=== PATIENT | female | born 1995 | race American Indian/Alaskan Native ===

== ENCOUNTER 2017-01-01 04:42 | Emergency (ER) | payer MEDICAID, OTHER ==
[2017-01-01 05:53] LABS: Anion Gap 20 mmol/L; BUN/Creatinine Ratio 16.66; Blood Urea Nitrogen 10 mg/dL (7-17); Calcium 9.3 mg/dL (8.4-10.2); Carbon Dioxide 23 mmol/L (22-30); Chloride 96.2 mmol/L (98-107); Glucose 332 mg/dL (65-100); Potassium 3.9 mmol/L (3.6-5.0); Sodium 135 mmol/L (137-145)
[2017-01-01 06:07] LABS: Hematocrit 43.3 % (30.3-42.9); Hemoglobin 14.4 gm/dl (10.1-14.3); Mean Corpuscular HGB Conc 33 % (30-34); Mean Corpuscular Hemoglobin 29 pg (28-32); Mean Corpuscular Volume 86 fl (79-97); Platelet Count 404 K/mm3 (140-440); Red Blood Count 5.01 M/mm3 (3.65-5.03); Red Cell Distribution Width 12.4 % (13.2-15.2); White Blood Count 18.6 K/mm3 (4.5-11.0)
[2017-01-01 06:50] LABS: Basophils % (Manual) 0 % (0.0-1.8); Blastocytes % (Manual) 0 %; Eosinophils % (Manual) 0 % (0.0-4.3)
[2017-01-01 06:51] LABS: Diff Status Complete; Platelet Estimate Consistent w Auto
[2017-01-01] MEDS ORDERED: NACL 0.9% 1000 ML 1,000 ML IV ONE ×2 (07:45→11:18)
[2017-01-01] MEDS ORDERED: NORCO 5/325 PO ONE (09:07)
[2017-01-01] MEDS ORDERED: NACL 0.9% 1000 ML 1,000 ML ONE (11:10)
[2017-01-01 11:23] LABS: Hematocrit 39.7 % (30.3-42.9); Hemoglobin 13.2 gm/dl (10.1-14.3); Mean Corpuscular HGB Conc 33 % (30-34); Mean Corpuscular Hemoglobin 29 pg (28-32); Mean Corpuscular Volume 87 fl (79-97); Platelet Count 398 K/mm3 (140-440); Red Blood Count 4.58 M/mm3 (3.65-5.03); Red Cell Distribution Width 12.5 % (13.2-15.2)
[2017-01-01 11:55] LABS: Basophils % (Manual) 0 % (0.0-1.8); Blastocytes % (Manual) 0 %
[2017-01-01 11:56] LABS: Diff Status Complete; RBC Morphology Normal
--- NOTE | 2017-01-01 11:58 | XRay Report ---
Single view chest: History: Chest pain. Findings: Normal cardiomediastinal silhouette. Trachea is midline. No consolidation, pneumothorax or pleural effusion. Impression: No acute cardiopulmonary findings.
--- NOTE | 2017-01-01 12:52 | Cat Scan Report ---
CTA chest: History: Chest pain. Findings: No evidence of aortic aneurysm or pulmonary embolism. No pleural or pericardial effusion. No mediastinal mass. Normal lung parenchyma. No discrete nodularity or consolidation. Impression: No evidence of pulmonary embolism. No acute lung changes.
[2017-01-01 14:32] VITALS: BP 125/83
--- NOTE | 2017-01-01 15:43 | Emergency Department Report ---
HPI - General Chief Complaint: Chest Pain Time Seen by Provider: 01/01/17 07:42 - HPI HPI: The patient is a 21-year-old female with a history of diabetes type 1 since childhood, who presents for evaluation of chest pain. The patient reports chest pain for the past 5 days, on and off, 6/10 in severity currently, aching in quality, and is exacerbated with deep breaths. The patient denies trauma to the chest, fever, cough, syncope, forceful vomiting, hemoptysis, unilateral leg swelling, oral contraceptive use, recent immobilization, history of DVT or PE, recent cancer or chemotherapy. ED Past Medical Hx - Past Medical History Previous Medical History?: Yes Hx Hypertension: Yes Hx Diabetes: Yes - Surgical History Past Surgical History?: No - Social History Smoking Status: Never Smoker Substance Use Type: Prescribed - Medications Home Medications: Home Medications Medication Instructions Recorded Confirmed Last Taken Type Famotidine [Pepcid] 20 mg PO DAILY #30 tablet 12/09/14 Unknown Rx Lantus 20 units SQ DAILY 12/09/14 12/09/14 Unknown History Lantus 30 units SQ HS 12/09/14 12/09/14 Unknown History Lisinopril 10 mg PO DAILY 12/09/14 12/09/14 Unknown History Ondansetron [Zofran Odt] 8 mg PO TID PRN #20 tab.rapdis 12/09/14 Unknown Rx Tramadol HCl [traMADol] 50 mg PO Q8H PRN #20 tablet 12/09/14 Unknown Rx metFORMIN 1,000 mg PO BID 12/09/14 12/09/14 Unknown History Famotidine [Pepcid] 20 mg PO BID #30 tablet 01/01/17 Unknown Rx HYDROcodone/APAP 7.5-325 [[place] 1 each PO Q8HR PRN #10 tablet 01/01/17 Unknown Rx 7.5-325 mg TAB] ED Review of Systems ROS: Stated complaint: CHEST PAIN/ABD PAIN Other details as noted in HPI Constitutional: denies: fever ENT: denies: throat or neck pain Respiratory: denies: cough, shortness of breath Cardiovascular: reports chest pain Endocrine: denies unexplained weight loss or gain Gastrointestinal: denies: abdominal pain, nausea Genitourinary: denies: dysuria Musculoskeletal: denies: leg swelling Skin: denies: rash Neurological: denies: headache Hematological/Lymphatic: denies: easy bleeding or easy bruising Psych: denies sadness or hopelessness Physical Exam - Physical Exam Vital Signs: Vital Signs 01/01/17 01/01/17 01/01/17 04:49 07:24 07:30 Temperature 98 F Pulse Rate 91 H 77 72 Respiratory 18 17 16 Rate Blood Pressure 123/82 Blood Pressure 123/82 [Left] O2 Sat by Pulse 100 99 99 Oximetry 01/01/17 01/01/17 01/01/17 07:34 07:40 08:00 Temperature Pulse Rate 73 71 Respiratory 18 22 21 Rate Blood Pressure 114/71 Blood Pressure [Left] O2 Sat by Pulse 100 99 100 Oximetry 01/01/17 01/01/17 01/01/17 08:30 09:00 09:30 Temperature Pulse Rate 73 93 H 73 Respiratory 20 21 19 Rate Blood Pressure 114/71 114/71 114/71 Blood Pressure [Left] O2 Sat by Pulse 100 100 100 Oximetry 01/01/17 01/01/17 01/01/17 10:00 10:30 11:00 Temperature Pulse Rate 87 83 71 Respiratory 22 21 24 Rate Blood Pressure 124/76 124/76 124/76 Blood Pressure [Left] O2 Sat by Pulse 99 99 100 Oximetry 01/01/17 01/01/17 12:00 13:06 Temperature Pulse Rate 77 Respiratory 18 Rate Blood Pressure 124/76 122/69 Blood Pressure [Left] O2 Sat by Pulse 99 100 Oximetry Physical Exam: General: well-nourished, well-developed, no acute distress Head: Normocephalic, atraumatic Eyes: normal sclera ENT: Mucous membranes are pale and dry Neck: No neck stiffness, no cervical adenopathy Respiratory: Breath sounds equal bilaterally, no wheezing, rales, or rhonchi Cardio: S1 and S2 present, no murmurs, rubs, gallops, capillary refill is delayed Abdomen: Normoactive bowel sounds, soft abdomen, no rigidity, no guarding or rebound tenderness Chest WALL/Back: No tenderness to palpation of the chest wall, no CVA tenderness with percussion Musc: No pitting edema Skin: No rash Neuro: no facial drooping, normal speech Psych: Normal affect ED Course Vital Signs 01/01/17 01/01/17 01/01/17 04:49 07:24 07:30 Temperature 98 F Pulse Rate 91 H 77 72 Respiratory 18 17 16 Rate Blood Pressure 123/82 Blood Pressure 123/82 [Left] O2 Sat by Pulse 100 99 99 Oximetry 01/01/17 01/01/17 01/01/17 07:34 07:40 08:00 Temperature Pulse Rate 73 71 Respiratory 18 22 21 Rate Blood Pressure 114/71 Blood Pressure [Left] O2 Sat by Pulse 100 99 100 Oximetry 01/01/17 01/01/17 01/01/17 08:30 09:00 09:30 Temperature Pulse Rate 73 93 H 73 Respiratory 20 21 19 Rate Blood Pressure 114/71 114/71 114/71 Blood Pressure [Left] O2 Sat by Pulse 100 100 100 Oximetry 01/01/17 01/01/17 01/01/17 10:00 10:30 11:00 Temperature Pulse Rate 87 83 71 Respiratory 22 21 24 Rate Blood Pressure 124/76 124/76 124/76 Blood Pressure [Left] O2 Sat by Pulse 99 99 100 Oximetry 01/01/17 01/01/17 12:00 13:06 Temperature Pulse Rate 77 Respiratory 18 Rate Blood Pressure 124/76 122/69 Blood Pressure [Left] O2 Sat by Pulse 99 100 Oximetry ED Medical Decision Making - Lab Data Result diagrams: 01/01/17 10:55 01/01/17 05:16 - Medical Decision Making The patient was seen and examined by myself. The patient is placed on a cardiac surgeon and continuous pulse ox. On initial evaluation, the patient was found to be in no distress. EKG was negative for findings suggestive of acute cardiac infarct. Labs and imaging are obtained. The patient is given IV morphine for pain and 1 L normal saline fluid bolus for treatment of dehydration. Chest x-ray is negative for pneumothorax, focal consolidation, pulmonary vascular congestion, pleural effusion, or other obvious acute cardiopulmonary disease process. Lab results revealed elevated glucose level >300, and elevated d-dimer, and otherwise labs were non-concerning including levels of troponin, WBC, hemoglobin, hematocrit, renal function, and negative test. The patient is given additional 1 L normal saline fluid bolus and IV insulin for treatment of her hyperglycemia. CT angiogram of the chest is negative for pulmonary embolism, pericardial effusion, or other emergent cardio pulmonary disease process. The patient was reevaluated and reported that her symptoms were resolved. As the patient has a MACIEL risk score less than 2, and a negative CTA of the chest, the patient is at low risk of ACS or pulmonary emboli etiology of their symptoms. The patient is stable for discharge with outpatient follow-up. The patient is given follow-up and return instructions. The patient expressed understanding and agreed with the plan. The patient is discharged in stable condition Critical care attestation.: If time is entered above; I have spent that time in minutes in the direct care of this critically ill patient, excluding procedure time. ED Disposition Clinical Impression: Acute chest pain, Dehydration, Hyperglycemia due to type 1 diabetes mellitus Disposition: DC-01 TO HOME OR SELFCARE Is pt being admited?: No Does the pt Need Aspirin: No Condition: Stable Instructions: Chest Pain (ED), Diabetic Hyperglycemia (ED) Referrals: PRIMARY CARE, [Primary Care Provider] - 3-5 Days Time of Disposition: 14:10
== END 2017-01-01 14:32 | disposition home or self-care (01) ==
LOC: ED 04:42
DX: R07.9 Chest pain, unspecified (principal); E86.0 Dehydration; E10.65 Type 1 diabetes mellitus with hyperglycemia; I10 Essential (primary) hypertension
CPT/HCPCS: 36415; 71010; 71275; 80048; 82962; 84484; 84703; 85007; 85025; 85379; 93005; 93010; 96361; 96374; 99285; J7030; Q9967; J1815